=== PATIENT | male | born 1940 | race Caucasian/White ===

== ENCOUNTER 2018-05-12 11:09 | Inpatient (IN) ==
--- NOTE | 2018-05-12 11:22 | ED ---
HPI General Chief Complaint: Shortness of Breath/Dyspnea Stated Complaint: SOB since yesterday Time Seen by Provider: 05/12/18 11:15 Source: patient Mode of arrival: wheelchair Limitations: no limitations History of Present Illness Patient's primary physician is Dr. Savage. Cardiology this is Dr. Ibarra who follows him for atrial fibrillation previously on amiodarone currently not on any antiarrhythmic and only on [address] wolf the oncologist for prostate and bladder cancer. Dr. andrade for COPD. Also history of Parkinson's and anemia. Patient comes in complaining of a one day onset of shortness of breath relieved partially by nebulizers and tremendously improved with oxygen. Patient states that he has had a nonproductive sputum times 2 days as well. No evidence of any nausea vomiting abdominal pain back pain or fever. Related Data Allergies Allergy/AdvReac Type Severity Reaction Status Date / Time No Known Allergies Allergy Uncoded 02/01/16 16:54 Review of Systems ROS: all other systems reviewed are negative PMFSH History History Provided By: Patient Social History Social History Substance History: No History of Abuse Smoking Status: Former smoker How Often Do You Have a Drink Containing Alcohol: Never Recent Travel in [facility] within the Last 8 Weeks: No Recent Out of Country Travel within the Last 8 Weeks: No Exam Narrative Exam Narrative: GENERAL: elderly male in moderate resp distress. SKIN: Warm and dry. HEAD: Atraumatic. Normocephalic. EYES: Pupils equal and round. No scleral icterus. No injection or drainage. ENT: No nasal bleeding or discharge. Mucous membranes pink and moist. NECK: Trachea midline. No JVD. CARDIOVASCULAR: Regular rate and rhythm. no rubs or gallops RESPIRATORY: No accessory muscle use. Tachypneic. Bilateral rhonchi . Tidal volume diminished bilaterally. GASTROINTESTINAL: Abdomen soft, non-tender, nondistended. No rebound or guarding MUSCULOSKELETAL: Extremities without clubbing, cyanosis, or edema. No obvious deformities. NEUROLOGICAL: Awake and alert. No obvious cranial nerve deficits. Motor grossly within normal limits. Five out of 5 muscle strength in the arms and legs. Normal speech. PSYCHIATRIC: Appropriate mood and affect; insight and judgment normal. Course Initial Documented Vital Signs Temperature 98.3 F 05/12/18 11:15 Pulse Rate 72 05/12/18 11:15 Respiratory Rate 22 05/12/18 11:15 Blood Pressure 138/106 H 05/12/18 11:15 Pulse Oximetry 91 L 05/12/18 11:15 Last Documented Vital Signs Temperature 98.3 F 05/12/18 11:15 Pulse Rate 70 05/12/18 11:55 Respiratory Rate 16 05/12/18 11:55 Blood Pressure 141/59 H 05/12/18 11:48 Pulse Oximetry 96 05/12/18 11:48 Critical Care Time Critical Care Time: Yes Total Critical Care Time: 45 Attestation: Aggregate critical care time was [45] minutes. Time to perform other separately billable procedures was not included in the critical care time. My time did not include minutes spent treating any other patients simultaneously or on activities that did not directly contribute to the patient's treatment. The services I provided to this patient were to treat and/or prevent clinically significant deterioration I provided critical care services requiring my management, as noted below: Chart data review, documentation time, medication orders and management, vital sign assessments/reviewing monitor data, ordering and reviewing lab tests, ordering and interpreting/reviewing x-rays and diagnostic studies, care of the patient and discussion of the patient with the admitting physicians. Medical Decision Making MDM Narrative Medical decision making narrative: No leukocytosis, anemia 8.9/27, 85% neutrophilia, normal platelet count Coagulation profile within normal limits Electrolytes are within normal limits. BUN elevated at 39 creatinine 2.4 GFR of 26 Hyperglycemia random glucose of 2 9 Normal liver and pancreatic enzymes. Negative troponin, elevated beta natruretic peptide 786 consistent with possible CHF Chest x-ray read by radiologist as radiographic findings concerning for CHF with pulmonary edema and bilateral pleural effusions noted. Patient had already empirically been treated for COPD, with albuterol nebulizers , supplemental oxygen and Solu-Medrol IV x1... Patient also received aspirin and nitroglycerin paste. Based on beta natruretic peptide and chest x-ray findings will add Lasix IV x1 and admit the patient for hypoxemic respiratory failure secondary to pulmonary edema Medical Screen Exam Complete: Yes Emergency Medical Condition: Yes Lab Data Result diagrams: 05/12/18 11:40 05/12/18 11:40 Lab Results 05/12/18 05/12/18 05/12/18 Range/Units 11:40 11:40 11:40 CBC w Diff Auto diff final WBC 9.9 (4.0-11.0) th/mm3 RBC 2.74 L (4.50-5.90) mil/mm3 Hgb 8.9 L (13.0-17.0) gm/dL Hct 27.1 L (39.0-51.0) % MCV 98.8 (80.0-100.0) fL MCH 32.5 (27.0-34.0) pg MCHC 33.0 (32.0-36.0) % RDW 15.5 (11.6-17.2) % Plt Count 190 (150-450) th/mm3 MPV 9.3 (7.0-11.0) fL Neut % (Auto) 84.7 H (16.0-70.0) % Lymph % (Auto) 5.3 L (9.0-44.0) % [place] % (Auto) 5.0 (0.0-8.0) % Eos % (Auto) 0.3 (0.0-4.0) % Baso % (Auto) 4.7 H (0.0-2.0) % Neut # (Auto) 8.4 H (1.8-7.7) th/mm3 Lymph # (Auto) 0.5 L (1.0-4.8) th/mm3 [place] # (Auto) 0.5 (0.0-0.9) th/mm3 Eos # (Auto) 0.0 (0.0-0.4) th/mm3 Baso # (Auto) 0.5 H (0.0-0.2) th/mm3 WBC Differential . Differential Comment . PT 11.0 (9.8-11.6) sec INR 1.1 Ratio APTT 27.3 (23.4-31.7) sec Sodium 138 (136-145) meq/L Potassium 4.1 (3.5-5.1) meq/L Chloride 101 (98-107) meq/L Carbon Dioxide 28.4 (21.0-32.0) meq/L Anion Gap 9 (5-15) meq/L BUN 39 H (7-18) mg/dL Creatinine 2.40 H (0.60-1.30) mg/dL Estimated GFR 26 L (>89) mL/min Random Glucose 209 H (74-106) mg/dL Calcium 8.4 L (8.5-10.1) mg/dL Total Bilirubin 0.5 (0.2-1.0) mg/dL AST 26 (15-37) U/L ALT 22 (12-78) U/L Alkaline Phosphatase 85 (45-117) U/L Total Creatine Kinase 62 (39-308) U/L Troponin I Less than 0.02 L (0.02-0.05) ng/mL B-Natriuretic Peptide (0-100) pg/mL Total Protein 6.7 (6.4-8.2) g/dL Albumin 2.8 L (3.4-5.0) g/dL Lipase 70 L (73-393) U/L 05/12/ Range/Units 11:40 CBC w Diff WBC (4.0-11.0) th/mm3 RBC (4.50-5.90) mil/mm3 Hgb (13.0-17.0) gm/dL Hct (39.0-51.0) % MCV (80.0-100.0) fL MCH (27.0-34.0) pg MCHC (32.0-36.0) % RDW (11.6-17.2) % Plt Count (150-450) th/mm3 MPV (7.0-11.0) fL Neut % (Auto) (16.0-70.0) % Lymph % (Auto) (9.0-44.0) % [place] % (Auto) (0.0-8.0) % Eos % (Auto) (0.0-4.0) % Baso % (Auto) (0.0-2.0) % Neut # (Auto) (1.8-7.7) th/mm3 Lymph # (Auto) (1.0-4.8) th/mm3 [place] # (Auto) (0.0-0.9) th/mm3 Eos # (Auto) (0.0-0.4) th/mm3 Baso # (Auto) (0.0-0.2) th/mm3 WBC Differential Differential Comment PT (9.8-11.6) sec INR Ratio APTT (23.4-31.7) sec Sodium (136-145) meq/L Potassium (3.5-5.1) meq/L Chloride (98-107) meq/L Carbon Dioxide (21.0-32.0) meq/L Anion Gap (5-15) meq/L BUN (7-18) mg/dL Creatinine (0.60-1.30) mg/dL Estimated GFR (>89) mL/min Random Glucose (74-106) mg/dL Calcium (8.5-10.1) mg/dL Total Bilirubin (0.2-1.0) mg/dL AST (15-37) U/L ALT (12-78) U/L Alkaline Phosphatase (45-117) U/L Total Creatine Kinase (39-308) U/L Troponin I (0.02-0.05) ng/mL B-Natriuretic Peptide 796 H (0-100) pg/mL Total Protein (6.4-8.2) g/dL Albumin (3.4-5.0) g/dL Lipase (73-393) U/L Imaging Data Radiologist's impression: Chest X-Ray 05/12/18 11:15 CONCLUSION: Radiographic findings concerning for congestive heart failure with pulmonary edema and bilateral pleural effusions versus multifocal airspace consolidation secondary to pneumonia. ECG Data EKG Prior to Arrival: No Attestation: I personally reviewed and interpreted this ECG as follows: Prior ECG tracings: not available for review Interpretation: Normal sinus rhythm, 72 bpm, Diffuse minimal ST depressions Discharge Plan Discharge Disposition Patient Disposition: ED Admit(ED Internal Use Only) Discharge Condition Condition: Fair Discharge Details Diagnosis: Acute hypoxemic respiratory failure, Pulmonary edema Physicians Team ED Provider: Jerel Casanova Primary Care Provider: Mira Rizo Discharge Interventions Interventions: Vital Signs Last Done: 05/12/18 11:48 Status ED Status: With Doctor
[2018-05-12] MEDS ORDERED: MethylPREDNISolone Sod Succinate Inj 125 MG/2 ML Vial IV.PUSH ONE (11:30)
--- NOTE | 2018-05-12 11:48 | XR ---
EXAM DATE: 05/12/2018 11:45 AM EST AGE/SEX: 77 years / Male INDICATIONS: Short of breath, cough, chest pains CLINICAL DATA: This is the patient's initial encounter. Patient reports that signs and symptoms have been present for 2 days and indicates a pain score of 2/10. MEDICAL/SURGICAL HISTORY: Chronic obstructive pulmonary disease. Congestive heart failure. . C ardiac stents COMPARISON: POI, XR CHEST PA AND LAT, 02/11/2018. . FINDINGS: AP view of the chest demonstrate stable appearance of mild cardiomegaly with new bilateral airspace c onsolidations. Pulmonary vasculature is obscured by parenchymal airspace opacity. Bilateral diaphragm s are obscured. CONCLUSION: Radiographic findings concerning for congestive heart failure with pulmonary edema and bilateral pleu ral effusions versus multifocal airspace consolidation secondary to pneumonia. Electronically signed by: Mayra Cruz MD Board Certified Radiologist 05/12/2018 11:46 AM E
[2018-05-12 11:55] LABS: Baso # (Auto) 0.5 th/mm3 (0.0-0.2); Baso % (Auto) 4.7 % (0.0-2.0); Eos % (Auto) 0.3 % (0.0-4.0); Hematocrit 27.1 % (39.0-51.0); Hemoglobin 8.9 gm/dL (13.0-17.0); Lymph # (Auto) 0.5 th/mm3 (1.0-4.8); Lymph % (Auto) 5.3 % (9.0-44.0); Mean Corpuscular Hemoglobin 32.5 pg (27.0-34.0); Mean Corpuscular Volume 98.8 fL (80.0-100.0); Mean Platelet Volume 9.3 fL (7.0-11.0); Mono # (Auto) 0.5 th/mm3 (0.0-0.9); Neut # (Auto) 8.4 th/mm3 (1.8-7.7); Neut % (Auto) 84.7 % (16.0-70.0); Platelet Count 190 th/mm3 (150-450); Red Blood Count 2.74 mil/mm3 (4.50-5.90); Red Cell Distribution Width 15.5 % (11.6-17.2); White Blood Count 9.9 th/mm3 (4.0-11.0)
[2018-05-12 12:05] LABS: Chloride 101 meq/L (98-107); Potassium 4.1 meq/L (3.5-5.1); Sodium 138 meq/L (136-145)
[2018-05-12 12:09] LABS: Calcium 8.4 mg/dL (8.5-10.1)
[2018-05-12 12:10] LABS: Activated Partial Thrombo Time 27.3 sec (23.4-31.7); Albumin 2.8 g/dL (3.4-5.0); Anion Gap 9 meq/L (5-15); Blood Urea Nitrogen 39 mg/dL (7-18); Carbon Dioxide 28.4 meq/L (21.0-32.0); Glucose,Random 209 mg/dL (74-106); INR 1.1 Ratio; Lipase 70 U/L (73-393)
[2018-05-12 12:12] LABS: Alanine Aminotransferase 22 U/L (12-78); Aspartate Aminotransferase 26 U/L (15-37); Glomerular Filtration Rate 26 mL/min (>89)
[2018-05-12 12:14] LABS: Total Protein 6.7 g/dL (6.4-8.2)
[2018-05-12 12:15] LABS: Alkaline Phosphatase 85 U/L (45-117)
[2018-05-12 12:16] LABS: Creatine Kinase 62 U/L (39-308)
[2018-05-12 13:09] LABS: Bilirubin,Urine Negative (Negative); Clarity,Urine Clear (Clear); Color,Urine Yellow (Yellw/Straw); Glucose,Urine (UA) Negative (Negative); Leukocyte Esterase,Urine Negative (Negative); Nitrite,Urine Negative (Negative); Urobilinogen,Urine 0.2 mg/dL (Less than 2)
[2018-05-12 13:14] LABS: RBC,Urine 0-3 /hpf (0-3); Squamous Epithelial Cell,Urine 0-5 /hpf (0-5); WBC,Urine 0-5 /hpf (0-5)
[2018-05-12] MEDS ORDERED: Acetaminophen 325 MG Tablet PO PRN (13:18)
[2018-05-12] MEDS: Heparin - SQ 10,000 UNITS/ML Vial SQ SCH ×2 (14:03→21:50)
--- NOTE | 2018-05-12 14:11 | P.HP ---
History of Present Illness Primary Care Physician: Mira Rizo MD Chief Complaint: Shortness of breath History of Present Illness: This is a 77-year-old male patient with a known medical history of COPD, atrial fibrillation, prostate and bladder cancer who presented to the ED with worsening shortness of breath x 1 day. Patient states that yesterday morning he noticed worsening shortness of breath especially with activity. He denies any recent coughing. Shortness of breath was partially relieved with his nebulizers although it does seem to worsen over the course of the day. Patient states that his daily weights were also creeping up as well. He states that last week he saw his jigger operator, Dr. Ibarra, who at that time discontinued his amiodarone secondary to some reports of scarring on his x-ray seen by his interactive media designer. He does have a history of atrial fibrillation, on a baby aspirin. His anticoagulation was stopped in 2016 secondary to a bleeding polyp. Patient also sees a smash piecer for chronic kidney disease, Dr. Haynes, last seen a few months ago and has documented kidney disease Patient does state that he had an upper respiratory infection roughly 2 months ago was placed on antibiotics and steroids, denies any recent antibiotics or steroids. Patient has a history of COPD, sees Dr. Hernandez, pulmonary. Denies any recent fevers, chills, headache, abdominal pain, nausea, vomiting, diarrhea or dysuria. Denies recent echocardiogram. Patient is found to be in CHF exacerbation unknown type. BNP elevated. Chest x-ray significant for pulmonary edema as well as bilateral pleural effusions. - Diagnosis (1) Acute hypoxemic respiratory failure (2) Pulmonary edema Inpatient Certification: I certify that the inpatient services were ordered in accordance with Medicare regulations governing the order. This includes certification that hospital inpatient services are reasonable and necessary and in the case of services not specified as inpatient-only under 42 CFR 419.22(n), that they are appropriately provided as inpatient services in accordance to with the 2-midnight benchmark under 43 CFR 412.3(e) Estimated Total Length of Stay (Days): 2 Plans for Post Hospital Care: Not yet determined Review of Systems All other systems reviewed negative except as stated [facility] - History History Provided By: Patient - Medical History Medical History: Medical History (Last Reviewed 05/12/18 @ 15:39 by Folra Ojeda) Bladder cancer CHF (congestive heart failure) COPD (chronic obstructive pulmonary disease) Heart attack Kidney disease Prostate cancer - Surgical History Surgical History: Surgical History (Last Reviewed 05/12/18 @ 15:39 by Flora Ojeda) History of coronary artery stent placement - Family History Family History: Family History (Last Updated 05/12/18 @ 15:39 by Flora Ojeda) Other Family history non-contributory - Social History I have reviewed the patient's Social History: Yes - Tobacco History Smoking Status: Former smoker - Alcohol History How Often Do You Have a Drink Containing Alcohol: Never - Substance Use History Substance History: No History of Abuse - Travel History Recent Travel in the [place] Within the Last 8 Weeks: No Recent Travel Out of the Country Within the Last 8 Weeks: No - Immunization History Tetanus Immunization: >5 Years Medications and Allergies Active Medications: Active Medications Acetaminophen (Tylenol) 650 mg PO Q4H PRN PRN Reason: Temp > 100.4, pain 1-2 Heparin Sodium (Porcine) (Heparin Inj) 5,000 units SQ Q8H [facility] Last Admin: 05/12/18 14:03 Dose: 5,000 units Senna/Docusate Sodium (Carmen-Colace) 1 tab PO BID ROLAND Sodium Chloride (Ns Flush) 2 ml IV.FLUSH BID ROLAND Sodium Chloride (Ns Flush) 2 ml IV.FLUSH PRN PRN PRN Reason: FLUSH AFTER USING IV ACCESS Allergies Allergy/AdvReac Type Severity Reaction Status Date / Time No Known Allergies Allergy Abdominal Uncoded 05/12/18 13:09 Pain Home Medications Medication Instructions Recorded Confirmed Type aspirin [Aspir-81] 81 mg PO DAILY 05/12/18 05/12/18 History atorvastatin 20 mg PO QPM 05/12/18 05/12/18 History bumetanide 1 mg PO DAILY PRN 05/12/18 05/12/18 History epoetin javi [Procrit] DIRECTED 05/12/18 History ferrous gluconate 324 mg PO DAILY 05/12/18 05/12/18 History hydralazine 100 mg PO BID 05/12/18 05/12/18 History insulin glargine [Lantus Solostar 20 unit SUBCUT DAILY 05/12/18 05/12/18 History U-100 Insulin] isosorbide mononitrate 60 mg PO QAM 05/12/18 05/12/18 History levothyroxine 50 mcg PO DAILY 05/12/18 05/12/18 History lorazepam 1 tab PO DIRECTED PRN 05/12/18 05/12/18 History magnesium 250 mg PO DAILY 05/12/18 05/12/18 History metolazone 10 mg PO DAILY PRN 05/12/18 05/12/18 History metoprolol succinate 50 mg PO DAILY 05/12/18 05/12/18 History gk-erx-tvoop acid-lutein [Centrum 1 tab PO DAILY 05/12/18 05/12/18 History Silver] omeprazole 20 mg PO DAILY 05/12/18 05/12/18 History potassium chloride [Klor-Con 10] 1 tab PO PRN 05/12/18 History sertraline 50 mg PO DAILY 05/12/18 05/12/18 History terazosin 5 mg PO BID 05/12/18 05/12/18 History tiotropium bromide [Spiriva with 1 cap INHALATION DAILY 05/12/18 05/12/18 History HandiHaler] Exam Vital signs: Vital Signs 05/12/18 11:15 05/12/18 11:45 05/12/18 11:48 Temperature 98.3 F Pulse Rate 74 71 71 Respiratory Rate 22 20 20 Blood Pressure 138/106 H 141/59 H 141/59 H Pulse Oximetry 96 96 96 05/12/18 11:49 05/12/18 11:55 05/12/18 12:51 Temperature Pulse Rate 69 70 75 Respiratory Rate 20 16 20 Blood Pressure 123/69 Pulse Oximetry 97 Intake & Output 05/11/18 05/12/18 05/12/18 18:59 06:59 18:59 Output Total 500 / 500 Balance -500 / -500 Weight 95 kg Output: Urine 500 / 500 Narrative: GENERAL: Well-developed, well-nourished patient on supplemental O2. In no apparent distress. SKIN: Warm and dry. No rash. HEAD: Normocephalic. Atraumatic. EYES: Pupils equal and round. No scleral icterus. No injection or drainage. ENT: No nasal bleeding or discharge. Mucous membranes pink and moist. NECK: Supple. Trachea midline. CARDIOVASCULAR: Regular rate and rhythm. S1, S2 noted. RESPIRATORY: No accessory muscle use. Diminished lung sounds secondary to body habitus. Breath sounds equal bilaterally. GASTROINTESTINAL: Abdomen soft, non-tender, nondistended. Round. Normoactive bowel sounds x4. MUSCULOSKELETAL: No obvious deformities. Extremities without clubbing, cyanosis , or edema. NEUROLOGICAL: Awake and alert. No obvious cranial nerve deficits. Motor grossly within normal limits. 5/5 muscle strength in bilateral upper and lower extremities. Normal speech. PSYCHIATRIC: Appropriate mood and affect; insight and judgment normal. Results - Labs CBC & Chem 7: 05/12/18 11:40 05/12/18 11:40 Labs: Laboratory Results - last 24 hr 05/12/18 05/12/18 05/12/18 11:40 11:40 11:40 CBC w Diff Auto diff final WBC 9.9 RBC 2.74 L Hgb 8.9 L Hct 27.1 L MCV 98.8 MCH 32.5 MCHC 33.0 RDW 15.5 Plt Count 190 MPV 9.3 Neut % (Auto) 84.7 H Lymph % (Auto) 5.3 L [place] % (Auto) 5.0 Eos % (Auto) 0.3 Baso % (Auto) 4.7 H Neut # (Auto) 8.4 H Lymph # (Auto) 0.5 L [place] # (Auto) 0.5 Eos # (Auto) 0.0 Baso # (Auto) 0.5 H WBC Differential . Differential Comment . PT 11.0 INR 1.1 APTT 27.3 Sodium 138 Potassium 4.1 Chloride 101 Carbon Dioxide 28.4 Anion Gap 9 BUN 39 H Creatinine 2.40 H Estimated GFR 26 L Random Glucose 209 H Calcium 8.4 L Total Bilirubin 0.5 AST 26 ALT 22 Alkaline Phosphatase 85 Total Creatine Kinase 62 Troponin I Less than 0.02 L B-Natriuretic Peptide Total Protein 6.7 Albumin 2.8 L Lipase 70 L Ur Collection Type Urine Color Urine Clarity Urine pH Ur Specific [place] Urine Protein Urine Glucose (UA) Urine Ketones Urine Occult Blood Urine Nitrate Urine Bilirubin Urine Urobilinogen Ur Leukocyte Esterase Urine RBC Urine WBC Ur Squamous Epith Cells Micro UA Comment Ur Microscopic Review Urine Culture Comments 05/12/18 05/12/18 11:40 12:55 CBC w Diff WBC RBC Hgb Hct MCV MCH MCHC RDW Plt Count MPV Neut % (Auto) Lymph % (Auto) [place] % (Auto) Eos % (Auto) Baso % (Auto) Neut # (Auto) Lymph # (Auto) [place] # (Auto) Eos # (Auto) Baso # (Auto) WBC Differential Differential Comment PT INR APTT Sodium Potassium Chloride Carbon Dioxide Anion Gap BUN Creatinine Estimated GFR Random Glucose Calcium Total Bilirubin AST ALT Alkaline Phosphatase Total Creatine Kinase Troponin I B-Natriuretic Peptide 796 H Total Protein Albumin Lipase Ur Collection Type Clean catch Urine Color Yellow Urine Clarity Clear Urine pH 5.0 Ur Specific [place] 1.010 Urine Protein Negative Urine Glucose (UA) Negative Urine Ketones Negative Urine Occult Blood Negative Urine Nitrate Negative Urine Bilirubin Negative Urine Urobilinogen 0.2 Ur Leukocyte Esterase Negative Urine RBC 0-3 Urine WBC 0-5 Ur Squamous Epith Cells 0-5 Micro UA Comment Culture not ind Ur Microscopic Review Microscopic reviewed Urine Culture Comments Culture not ind - Imaging Impressions Chest X-Ray 05/12/18 11:15 CONCLUSION: Radiographic findings concerning for congestive heart failure with pulmonary edema and bilateral pleural effusions versus multifocal airspace consolidation secondary to pneumonia. Caprini VTE Risk Assessment Caprini VTE Risk Assessment: Moderate/High Risk (score >= 2) Caprini Risk Assessment Model: Point Value = 1 Point Value = 2 Point Value = 3 Point Value = 5 Age 41-60 Minor surgery BMI > 25 kg/m2 Swollen legs Varicose veins or History of unexplained or recurrent spontaneous Oral contraceptives or hormone replacement Sepsis (< 1 month) Serious lung disease, including pneumonia (< 1 month) Abnormal pulmonary function Acute myocardial infarction Congestive heart failure (< 1 month) History of inflammatory bowel disease Medical patient at bed rest Age 61-74 Arthroscopic surgery Major open surgery (> 45 min) Laparoscopic surgery (> 45 min) Malignancy Confined to bed (> 72 hours) Immobilizing plaster cast Central venous access Age >= 75 History of VTE Family history of VTE Factor V Leiden Prothrombin [id number] Lupus anticoagulant Anticardiolipin antibodies Elevated serum homocysteine Heparin-induced thrombocytopenia Other congenital or acquired thrombophilia Stroke (< 1 month) Elective arthroplasty Hip, pelvis, or leg fracture Acute spinal cord injury (< 1 month) Prophylaxis Regimen: Total Risk Factor Score Risk Level Prophylaxis Regimen 0-1 Low Early ambulation 2 Moderate Order ONE of the following: *Sequential Compression Device (SCD) *Heparin 5000 units SQ BID 3-4 Higher Order ONE of the following medications: *Heparin 5000 units SQ TID *Enoxaparin/Lovenox 40 mg SQ daily (WT < 150 kg, CrCl > 30 mL/min) *Enoxaparin/Lovenox 30 mg SQ daily (WT < 150 kg, CrCl > 10-29 mL/min) *Enoxaparin/Lovenox 30 mg SQ BID (WT < 150 kg, CrCl > 30 mL/min) AND/OR *Sequential Compression Device (SCD) 5 or more Highest Order ONE of the following medications: *Heparin 5000 units SQ TID (Preferred with Epidurals) *Enoxaparin/Lovenox 40 mg SQ daily (WT < 150 kg, CrCl > 30 mL/min) *Enoxaparin/Lovenox 30 mg SQ daily (WT < 150 kg, CrCl > 10-29 mL/min) *Enoxaparin/Lovenox 30 mg SQ BID (WT < 150 kg, CrCl > 30 mL/min) AND *Sequential Compression Device (SCD) Assessment and Plan - Assessment (1) Acute hypoxemic respiratory failure Code(s): J96.01 - Acute respiratory failure with hypoxia Status: Acute (2) Pulmonary edema Code(s): J81.1 - Chronic pulmonary edema Status: Acute - Plan This is a 77-year-old male patient presented to the ED with: CHF, unspecified type, in exacerbation Acute respiratory failure suspect secondary to above -BNP 796. Chest x-ray showing possible pulmonary edema with pleural effusions. Order for CT of the chest. Follow. -Order for Lasix 40 mg IV daily. -Monitor intake and output closely. -Check echocardiogram. Follow. -EKG reviewed, controlled heart rate, no ST changes to indicate ischemia. Troponin negative. COPD with possible exacerbation -Chest x-ray findings as above. Follow chest CT. -Patient was given methylprednisone IV 125 mg x1 in ED. -Supplemental O2 as needed to keep oxygen saturations greater than 92%. -DuoNeb scheduled and available as needed for shortness of breath/wheezing. History of atrial fibrillation -Patient follows with Dr. Ibarra, cardiology. No anticoagulation. On aspirin at home. -Continue on cardiac telemetry, monitor for any arrhythmias. -EKG reviewed, sinus rhythm with controlled heart rate, no ST changes to indicate any ischemia. Anemia of chronic disease History of iron deficiency anemia. Normocytic normochromic anemia -Hemoglobin 8.9/hematocrit 27.1. -Will continue to monitor CBC. -No signs of active bleeding. -Patient takes iron at home as well as Epogen. Acute? kidney injury on chronic -Creatinine 2.4/GFR 26/BUN 39. -Unknown if this is chronic for patient. -Will likely improve with use of diuretics. Continue to follow. -Avoid nephrotoxins. -Recheck BMP in a.m. Follow. Type 2 diabetes mellitus, chronic -Accu-Chek before meals at bedtime, sliding scale, cover as needed. -Patient takes insulin at home. -Monitor blood sugar trends. History of prostate and bladder cancer -Patient sees Dr. Velez. -Currently stable. DVT prophylaxis: SCDs. Heparin. (2) Pulmonary edema Qualifiers: Chronicity: acute Qualified Code(s): J81.0 - Acute pulmonary edema
[2018-05-12] MEDS ORDERED: Dextrose 50% in Water 50 ML Vial IV.PUSH PRN (14:54)
--- NOTE | 2018-05-12 16:13 | CT ---
EXAM DATE: 05/12/2018 4:05 PM EST AGE/SEX: 77 years / Male INDICATIONS: Short of breath since yesterday. CLINICAL DATA: This is the patient's initial encounter. Patient reports that signs and symptoms have been present for 2 days and indicates a pain score of 0/10. MEDICAL/SURGICAL HISTORY: None. None. RADIATION DOSE: 16.52 CTDI (mGy) COMPARISON: No prior exams available for comparison. TECHNIQUE: Multiple contiguous axial images were obtained through the chest without contrast. Image s were obtained in suspended respiration using multiple row detector helical technique. Using automa kristel exposure control and adjustment of the mA and/or kV according to patient size, radiation dose was kept as low as reasonably achievable to obtain optimal diagnostic quality images. DICOM format imag e data is available electronically for review and comparison. FINDINGS: Moderate bilateral pleural effusions are present with consolidation and/or compressive collapse bilat eral lower lobes. There is evidence of prominence bilaterally may represent pulmonary edema. Small pe ricardial effusion is seen. There are lymph nodes within the mediastinum slightly prominent the large st one measures 2.4 cm in size right paratracheal location and this lymph node measured 1.4 cm on the prior study from 2014. There are prominent lymph nodes in the AP window and bilateral hilar as well as subcarinal area. CONCLUSION: 1. Volume overload and pulmonary edema. 2. Bilateral pleural effusions. Bibasilar consolidation and/or compressive collapse. 3. Prominent lymph nodes not present on the prior study from 2014 nonspecific in regards to malignan cy could be reactive, however neoplastic etiologies should also be entertained and clinical correlati on is recommended. Electronically signed by: Gonzalo Berrios MD Board Certified Radiologist 05/12/2018 4:12 PM EST
[2018-05-12] MEDS: Insulin NovoLOG Aspart Correctional Sugar Inj SQ SCH ×2 (17:56→20:59)
[2018-05-12] MEDS: MethylPREDNISolone Sod Succinate Inj 40 MG/ML Vial IV.PUSH SCH ×2 (17:56→21:49)
[2018-05-12] MEDS: Isosorbide Mononitrate 60 MG ER 24HR Tablet (Imdur) PO SCH (17:56)
[2018-05-12] MEDS: Senna/Docusate Sodium 8.6/50 MG Tablet PO SCH (20:59)
[2018-05-12] MEDS: hydrALAZINE 50 MG Tablet PO SCH (21:50)
[2018-05-13] MEDS: MethylPREDNISolone Sod Succinate Inj 40 MG/ML Vial IV.PUSH SCH ×3 (04:09→16:47)
[2018-05-13 04:36] LABS: Baso % (Auto) 0.1 % (0.0-2.0); Hematocrit 25.1 % (39.0-51.0); Hemoglobin 8.3 gm/dL (13.0-17.0); Lymph # (Auto) 0.3 th/mm3 (1.0-4.8); Lymph % (Auto) 2.3 % (9.0-44.0); Mean Corpuscular HGB Conc 33.2 % (32.0-36.0); Mean Corpuscular Hemoglobin 32.8 pg (27.0-34.0); Mean Corpuscular Volume 98.6 fL (80.0-100.0); Mono # (Auto) 0.1 th/mm3 (0.0-0.9); Mono % (Auto) 0.7 % (0.0-8.0); Neut # (Auto) 11.8 th/mm3 (1.8-7.7); Neut % (Auto) 96.9 % (16.0-70.0); Platelet Count 202 th/mm3 (150-450); Red Blood Count 2.54 mil/mm3 (4.50-5.90); Red Cell Distribution Width 15.1 % (11.6-17.2); White Blood Count 12.1 th/mm3 (4.0-11.0)
[2018-05-13 04:42] LABS: Chloride 98 meq/L (98-107); Potassium 3.6 meq/L (3.5-5.1); Sodium 137 meq/L (136-145)
[2018-05-13 04:45] LABS: Albumin 2.6 g/dL (3.4-5.0); Anion Gap 9 meq/L (5-15); Calcium 8.2 mg/dL (8.5-10.1); Carbon Dioxide 29.9 meq/L (21.0-32.0); Glucose,Random 277 mg/dL (74-106)
[2018-05-13 04:46] LABS: Blood Urea Nitrogen 47 mg/dL (7-18)
[2018-05-13 04:48] LABS: Alanine Aminotransferase 20 U/L (12-78); Aspartate Aminotransferase 18 U/L (15-37)
[2018-05-13 04:49] LABS: Glomerular Filtration Rate 24 mL/min (>89)
[2018-05-13 04:50] LABS: Total Protein 6.3 g/dL (6.4-8.2)
[2018-05-13 04:51] LABS: Alkaline Phosphatase 77 U/L (45-117)
[2018-05-13] MEDS: Heparin - SQ 10,000 UNITS/ML Vial SQ SCH ×3 (05:51→21:22)
[2018-05-13] MEDS: Levothyroxine 50 MCG Tablet PO SCH (05:52)
[2018-05-13] MEDS: Isosorbide Mononitrate 60 MG ER 24HR Tablet (Imdur) PO SCH (06:26)
[2018-05-13] MEDS: hydrALAZINE 50 MG Tablet PO SCH ×2 (08:30→21:21)
[2018-05-13] MEDS: Ferrous Sulfate 325 MG Tablet PO SCH (08:30)
[2018-05-13] MEDS: Senna/Docusate Sodium 8.6/50 MG Tablet PO SCH ×2 (08:31→21:21)
[2018-05-13] MEDS: Sertraline 50 MG Tablet PO SCH (08:31)
[2018-05-13] MEDS: Magnesium Oxide 400 MG Tablet PO SCH (08:31)
[2018-05-13] MEDS: Insulin NovoLOG Aspart Correctional Sugar Inj SQ SCH ×4 (08:37→21:20)
[2018-05-13] MEDS: Tiotropium Bromide 18 MCG/ACT Inhaler INH SCH (08:38)
[2018-05-13] MEDS: Insulin Detemir Inj 1,000 UNIT/10 ML Vial SQ SCH (08:38)
[2018-05-13] MEDS ORDERED: levoFLOXacin 750 MG Tablet PO SCH ×2 (11:30→12:00)
--- NOTE | 2018-05-13 11:34 | P.PNIM ---
Subjective Interval history: Follow-up CHF exacerbation and acute respiratory failure. Patient seen and examined, sitting in chair comfortably on 1 L nasal cannula. States he slept well. Is diuresing well. Awaiting pulmonary input. Check ultrasound pleural effusions. Vital signs stable. Afebrile. Physical Exam Vital signs: Vital Signs 05/12/18 11:45 05/12/18 11:48 05/12/18 11:49 Temperature Pulse Rate 71 71 69 Respiratory Rate 20 20 20 Blood Pressure 141/59 H 141/59 H Pulse Oximetry 96 96 05/12/18 11:55 05/12/18 12:51 05/12/18 15:00 Temperature Pulse Rate 70 75 110 H Respiratory Rate 16 20 Blood Pressure 123/69 Pulse Oximetry 97 05/12/18 15:05 05/12/18 16:00 05/12/18 16:12 Temperature 98.1 F Pulse Rate 69 Respiratory Rate 20 24 Blood Pressure 138/61 171/64 H 171/64 H Pulse Oximetry 94 L 05/12/18 16:22 05/12/18 17:00 05/12/18 18:00 Temperature Pulse Rate 68 68 70 Respiratory Rate 20 21 21 Blood Pressure 181/75 H 159/64 H Pulse Oximetry 95 95 94 L 05/12/18 19:00 05/12/18 20:00 05/12/18 20:40 Temperature 98.1 F Pulse Rate 70 72 70 Respiratory Rate 26 H 20 18 Blood Pressure 160/59 H 192/63 H Pulse Oximetry 95 95 95 05/12/18 21:00 05/12/18 22:00 05/12/18 22:06 Temperature Pulse Rate 72 80 80 Respiratory Rate 22 20 24 Blood Pressure 172/63 H 143/61 H Pulse Oximetry 96 94 L 95 05/12/18 22:08 05/12/18 23:00 05/12/18 23:10 Temperature Pulse Rate 79 76 78 Respiratory Rate 28 H 26 H 22 Blood Pressure 143/61 H 165/65 H Pulse Oximetry 93 L 93 L 96 05/13/18 00:00 05/13/18 01:00 05/13/18 02:00 Temperature 99.2 F Pulse Rate 72 74 72 Respiratory Rate 25 H 24 19 Blood Pressure 154/56 H 158/85 H 157/55 H Pulse Oximetry 94 L 95 95 05/13/18 03:00 05/13/18 04:00 05/13/18 05:00 Temperature 98.3 F Pulse Rate 68 70 68 Respiratory Rate 23 31 H 23 Blood Pressure 148/53 H 168/61 H 178/81 H Pulse Oximetry 95 94 L 94 L 05/13/18 06:00 05/13/18 07:00 05/13/18 07:27 Temperature Pulse Rate 68 66 65 Respiratory Rate 25 H 26 H 16 Blood Pressure 161/55 H 179/67 H Pulse Oximetry 96 95 95 05/13/18 08:00 05/13/18 08:31 05/13/18 09:00 Temperature 98.3 F Pulse Rate 76 78 84 Respiratory Rate 22 26 H 30 H Blood Pressure 192/72 H 183/77 H 182/96 H Pulse Oximetry 91 L 92 L 05/13/18 10:00 Temperature Pulse Rate 74 Respiratory Rate 15 Blood Pressure 153/59 H Pulse Oximetry 94 L Intake & Output 05/12/18 05/13/18 05/13/18 18:59 06:59 18:59 Intake Total 0 / 0 240 / 240 Output Total 500 / 500 Balance -500 / -500 0 / 0 240 / 240 Weight 95 kg 96.6 kg Intake: Oral 0 / 0 240 / 240 Output: Urine 500 / 500 Other: # Urine Diapers 1 Narrative: GENERAL: Well-developed, well-nourished patient on supplemental O2. In no apparent distress. SKIN: Warm and dry. No rash. HEAD: Normocephalic. Atraumatic. EYES: Pupils equal and round. No scleral icterus. No injection or drainage. ENT: No nasal bleeding or discharge. Mucous membranes pink and moist. NECK: Supple. Trachea midline. CARDIOVASCULAR: Regular rate and rhythm. S1, S2 noted. RESPIRATORY: No accessory muscle use. Posterior lobes with crackles in bases. Breath sounds equal bilaterally. GASTROINTESTINAL: Abdomen soft, non-tender, nondistended. Round. Normoactive bowel sounds x4. MUSCULOSKELETAL: No obvious deformities. Extremities without clubbing, cyanosis. Bilateral lower extremity edema 1+. NEUROLOGICAL: Awake and alert. No obvious cranial nerve deficits. Motor grossly within normal limits. 5/5 muscle strength in bilateral upper and lower extremities. Normal speech. PSYCHIATRIC: Appropriate mood and affect; insight and judgment normal. Results - Labs CBC & Chem 7: 05/13/18 03:57 05/13/18 03:57 Laboratory Results - last 24 hr 05/12/18 05/12/18 05/12/18 11:40 11:40 11:40 CBC w Diff Auto diff final WBC 9.9 RBC 2.74 L Hgb 8.9 L Hct 27.1 L MCV 98.8 MCH 32.5 MCHC 33.0 RDW 15.5 Plt Count 190 MPV 9.3 Neut % (Auto) 84.7 H Lymph % (Auto) 5.3 L [place] % (Auto) 5.0 Eos % (Auto) 0.3 Baso % (Auto) 4.7 H Neut # (Auto) 8.4 H Lymph # (Auto) 0.5 L [place] # (Auto) 0.5 Eos # (Auto) 0.0 Baso # (Auto) 0.5 H WBC Differential . Differential Comment . PT 11.0 INR 1.1 APTT 27.3 Sodium 138 Potassium 4.1 Chloride 101 Carbon Dioxide 28.4 Anion Gap 9 BUN 39 H Creatinine 2.40 H Estimated GFR 26 L POC Glucose Random Glucose 209 H Calcium 8.4 L Total Bilirubin 0.5 AST 26 ALT 22 Alkaline Phosphatase 85 Total Creatine Kinase 62 Troponin I Less than 0.02 L B-Natriuretic Peptide Total Protein 6.7 Albumin 2.8 L Lipase 70 L Ur Collection Type Urine Color Urine Clarity Urine pH Ur Specific [place] Urine Protein Urine Glucose (UA) Urine Ketones Urine Occult Blood Urine Nitrate Urine Bilirubin Urine Urobilinogen Ur Leukocyte Esterase Urine RBC Urine WBC Ur Squamous Epith Cells Micro UA Comment Ur Microscopic Review Urine Culture Comments 05/12/18 05/12/18 05/12/18 11:40 12:55 16:41 CBC w Diff WBC RBC Hgb Hct MCV MCH MCHC RDW Plt Count MPV Neut % (Auto) Lymph % (Auto) [place] % (Auto) Eos % (Auto) Baso % (Auto) Neut # (Auto) Lymph # (Auto) [place] # (Auto) Eos # (Auto) Baso # (Auto) WBC Differential Differential Comment PT INR APTT Sodium Potassium Chloride Carbon Dioxide Anion Gap BUN Creatinine Estimated GFR POC Glucose Random Glucose Calcium Total Bilirubin AST ALT Alkaline Phosphatase Total Creatine Kinase Troponin I Less than 0.02 L B-Natriuretic Peptide 796 H Total Protein Albumin Lipase Ur Collection Type Clean catch Urine Color Yellow Urine Clarity Clear Urine pH 5.0 Ur Specific [place] 1.010 Urine Protein Negative Urine Glucose (UA) Negative Urine Ketones Negative Urine Occult Blood Negative Urine Nitrate Negative Urine Bilirubin Negative Urine Urobilinogen 0.2 Ur Leukocyte Esterase Negative Urine RBC 0-3 Urine WBC 0-5 Ur Squamous Epith Cells 0-5 Micro UA Comment Culture not ind Ur Microscopic Review Microscopic reviewed Urine Culture Comments Culture not ind 05/12/18 05/12/18 05/12/18 17:01 20:54 22:08 CBC w Diff WBC RBC Hgb Hct MCV MCH MCHC RDW Plt Count MPV Neut % (Auto) Lymph % (Auto) [place] % (Auto) Eos % (Auto) Baso % (Auto) Neut # (Auto) Lymph # (Auto) [place] # (Auto) Eos # (Auto) Baso # (Auto) WBC Differential Differential Comment PT INR APTT Sodium Potassium Chloride Carbon Dioxide Anion Gap BUN Creatinine Estimated GFR POC Glucose 317 H 348 H Random Glucose Calcium Total Bilirubin AST ALT Alkaline Phosphatase Total Creatine Kinase Troponin I Less than 0.02 L B-Natriuretic Peptide Total Protein Albumin Lipase Ur Collection Type Urine Color Urine Clarity Urine pH Ur Specific [place] Urine Protein Urine Glucose (UA) Urine Ketones Urine Occult Blood Urine Nitrate Urine Bilirubin Urine Urobilinogen Ur Leukocyte Esterase Urine RBC Urine WBC Ur Squamous Epith Cells Micro UA Comment Ur Microscopic Review Urine Culture Comments 05/13/18 05/13/18 05/13/18 03:57 03:57 08:19 CBC w Diff Auto diff final WBC 12.1 H RBC 2.54 L Hgb 8.3 L Hct 25.1 L MCV 98.6 MCH 32.8 MCHC 33.2 RDW 15.1 Plt Count 202 MPV 10.0 Neut % (Auto) 96.9 H Lymph % (Auto) 2.3 L [place] % (Auto) 0.7 Eos % (Auto) 0.0 Baso % (Auto) 0.1 Neut # (Auto) 11.8 H Lymph # (Auto) 0.3 L [place] # (Auto) 0.1 Eos # (Auto) 0.0 Baso # (Auto) 0.0 WBC Differential . Differential Comment . PT INR APTT Sodium 137 Potassium 3.6 Chloride 98 Carbon Dioxide 29.9 Anion Gap 9 BUN 47 H Creatinine 2.60 H Estimated GFR 24 L POC Glucose 324 H Random Glucose 277 H Calcium 8.2 L Total Bilirubin 0.4 AST 18 ALT 20 Alkaline Phosphatase 77 Total Creatine Kinase Troponin I B-Natriuretic Peptide Total Protein 6.3 L Albumin 2.6 L Lipase Ur Collection Type Urine Color Urine Clarity Urine pH Ur Specific [place] Urine Protein Urine Glucose (UA) Urine Ketones Urine Occult Blood Urine Nitrate Urine Bilirubin Urine Urobilinogen Ur Leukocyte Esterase Urine RBC Urine WBC Ur Squamous Epith Cells Micro UA Comment Ur Microscopic Review Urine Culture Comments - Imaging Impressions Chest CT 05/12/18 00:00 CONCLUSION: 1. Volume overload and pulmonary edema. 2. Bilateral pleural effusions. Bibasilar consolidation and/or compressive collapse. 3. Prominent lymph nodes not present on the prior study from 2014 nonspecific in regards to malignancy could be reactive, however neoplastic etiologies should also be entertained and clinical correlation is recommended. Chest X-Ray 05/12/18 11:15 CONCLUSION: Radiographic findings concerning for congestive heart failure with pulmonary edema and bilateral pleural effusions versus multifocal airspace consolidation secondary to pneumonia. Assessment and Plan - Assessment (1) Acute hypoxemic respiratory failure Code(s): J96.01 - Acute respiratory failure with hypoxia Status: Acute (2) Pulmonary edema Code(s): J81.1 - Chronic pulmonary edema Status: Acute - Plan This is a 77-year-old male patient presented to the ED with: CHF, unspecified type, in exacerbation Acute respiratory failure suspect secondary to above -BNP 796. Chest x-ray showing possible pulmonary edema with pleural effusions. Chest CT showing bilateral pleural effusions and pulm edema and overload. Also prominent lymph nodes presents. Pulmonary has been consulted, await input and recommendations. Added US bilateral lungs. -Order for Lasix 40 mg IV daily. Continue. Diuresing well. -Monitor intake and output closely. -Check echocardiogram. Follow. -EKG reviewed, controlled heart rate, no ST changes to indicate ischemia. Troponin negative. COPD with possible exacerbation -Chest x-ray and chest CT findings as above. -Patient was given methylprednisone IV 125 mg x1 in ED. Continue steroids scheduled. Added Levaquin. -Supplemental O2 as needed to keep oxygen saturations greater than 92%. -DuoNeb scheduled and available as needed for shortness of breath/wheezing. -Await pulmonary input. History of atrial fibrillation -Patient follows with Dr. Ibarra, cardiology. Not on anticoagulation at home. On aspirin at home. -Continue on cardiac telemetry, monitor for any arrhythmias. -EKG reviewed, sinus rhythm with controlled heart rate, no ST changes to indicate any ischemia. Anemia of chronic disease History of iron deficiency anemia. Normocytic normochromic anemia -Hemoglobin 8.9/hematocrit 27.1. -Will continue to monitor CBC. -No signs of active bleeding. -Patient takes iron at home as well as Epogen. Chronic kidney disease stage IV -Creatinine 2.4/GFR 26/BUN 39. Patient and state that patient's baseline GFR is around 26. -Continue to follow. -Avoid nephrotoxins. -Follow BMP in a.m. Type 2 diabetes mellitus, chronic -Accu-Chek before meals at bedtime, sliding scale, cover as needed. -Patient takes insulin at home. -Monitor blood sugar trends. Steroids may cause hyperglycemia. -Continue Levemir at night. Adjust as needed. History of prostate and bladder cancer -Patient sees Dr. Velez. -Currently stable. DVT prophylaxis: SCDs. Heparin. Discharge Planning: Awaiting clinical improvement. Pulm consulted. (2) Pulmonary edema Qualifiers: Chronicity: acute Qualified Code(s): J81.0 - Acute pulmonary edema
--- NOTE | 2018-05-13 12:17 | ECG ---
Date Performed: 05/12/2018 Time Performed: 11:13:51 PTAGE: 77 years EKG: Sinus rhythm NONSPECIFIC ST & T-WAVE ABNORMALITY BORDERLINE ECG Since the PREVIOUS TRACING , no significant change noted PREVIOUS TRACIN07/27/2015 07.15 DOCTOR: Sohan Barahona Interpretating Date/Time 05/13/2018 12:16:06
--- NOTE | 2018-05-13 12:30 | US ---
EXAM DATE: 05/13/2018 12:08 PM EST AGE/SEX: 77 years / Male INDICATIONS: Pleural effusion with shortness of breath. CLINICAL DATA: This is the patient's initial encounter. Patient reports that signs and symptoms have been present for 2 days and indicates a pain score of 0/10. MEDICAL/SURGICAL HISTORY: Carcinoma, bladder. Chronic obstructive pulmonary disease. Congesti ve heart failure. Renal disease. Parkinson's disease. Prostate cancer. Myocardial infarction. Co ronary artery stent. COMPARISON: [facility], CT CHEST W/O CONTRAST, 05/12/2018. . MEASUREMENTS: Skin To Parietal Pleura:__2.5 cm Skin To Max Safe Depth:__N/A cm Estimated Fluid Volume:__485 cc Fluid Composition:__simple FINDINGS: No marking was performed because there is no clear window CONCLUSION: 1. Pleural effusion, without clear window. Thoracentesis under ultrasound or CT guidance could be pe rformed Electronically signed by: Torres Viera MD Board Certified Radiologist 05/13/2018 12:29 PM EST
--- NOTE | 2018-05-13 13:07 | US ---
EXAM DATE: 05/13/2018 12:09 PM EST AGE/SEX: 77 years / Male INDICATIONS: Pleural effusion with shortness of breath. CLINICAL DATA: This is the patient's initial encounter. Patient reports that signs and symptoms have been present for 2 days and indicates a pain score of 0/10. MEDICAL/SURGICAL HISTORY: Carcinoma, bladder. Chronic obstructive pulmonary disease. Congesti ve heart failure. Renal disease. Parkinson's disease. Prostate cancer. Myocardial infarction. Co ronary artery stent. COMPARISON: [facility], US CHEST RIGHT, 05/13/2018. . MEASUREMENTS: Skin To Parietal Pleura:__3.2 cm Skin To Max Safe Depth:__N/A cm Estimated Fluid Volume:__401 cc Fluid Composition:__simple FINDINGS: Pleural fusion as above without clear window. CONCLUSION: 1. Pleural effusion as above without clear window. No marking Electronically signed by: Torres Viera MD Board Certified Radiologist 05/13/2018 1:06 PM EST
--- NOTE | 2018-05-13 13:41 | ECHRPT ---
Indication: Heart Failure CONCLUSIONS Normal left ventricular size. Wall thickness is measured at the upper limits of normal. The left ventricular systolic function is normal with an estimated ejection fraction in the range of 55-60%. The left atrial size is mildly dilated. Calcification of the posterior mitral valve leaflet. Trace mitral valve regurgitation. There is trace tricuspid valve regurgitation. The estimated pulmonary arterial pressure is 49 mmHg. BP: 155 / 51 HR: 79 Rhythm: MEASUREMENTS (Male / Female) Normal Values Technical Quality:Fair 2D ECHO LV Diastolic Diameter PLAX 5.3 cm 4.2 - 5.9 / 3.9 - 5.3 cm LV Systolic Diameter PLAX 3.5 cm IVS Diastolic Thickness 1.0 cm 0.6 - 1.0 / 0.6 - 0.9 cm LVPW Diastolic Thickness 0.9 cm 0.6 - 1.0 / 0.6 - 0.9 cm LV Relative Wall Thickness 0.4 RV Internal Dim ED PLAX 3.5 cm LVOT Diameter 2.0 cm Aortic Root Diameter 2.6 cm LA Systolic Diameter LX 4.5 cm 3.0 - 4.0 / 2.7 - 3.8 cm M-MODE AV Cusp Separation MM 1.8 cm DOPPLER AV Peak Velocity 207.0 cm/s AV Peak Gradient 17.1 mmHg AV Mean Gradient 8.0 mmHg AV Velocity Time Integral 44.6 cm LVOT Peak Velocity 136.0 cm/s LVOT Peak Gradient 7.4 mmHg LVOT Velocity Time Integral 33.0 cm LVOT Cardiac Index 3849.6 cm/minm AV Area Cont Eq vti 2.3 cm AV Area Cont Eq pk 2.1 cm Mitral E Point Velocity 133.0 cm/s Mitral A Point Velocity 132.0 cm/s Mitral E to A Ratio 1.0 LV E' Lateral Velocity 8.9 cm/s Mitral E to LV E' Lateral Ratio 15.0 LV E' Septal Velocity 6.6 cm/s Mitral E to LV E' Septal Ratio 20.1 TR Peak Velocity 312.0 cm/s TR Peak Gradient 38.9 mmHg Right Atrial Pressure 10.0 mmHg Pulmonary Artery Systolic Pressu 48.9 mmHg Right Ventricular Systolic Press 48.9 mmHg PV Peak Velocity 129.0 cm/s PV Peak Gradient 6.7 mmHg FINDINGS LEFT VENTRICLE Normal left ventricular size. Wall thickness is measured at the upper limits of normal. The left ventricular systolic function is normal with an estimated ejection fraction in the range of 55-60%. RIGHT VENTRICLE Normal right ventricular size and systolic function. LEFT ATRIUM The left atrial size is mildly dilated. RIGHT ATRIUM The right atrial size is normal. ATRIAL SEPTUM Normal atrial septal thickness without atrial level shunting by limited color doppler interrogation. AORTA The aortic root and proximal ascending aorta are normal in size on limited imaging. MITRAL VALVE Calcification of the posterior mitral valve leaflet. Trace mitral valve regurgitation. AORTIC VALVE Trileaflet aortic valve. Aortic valve sclerosis is present. TRICUSPID VALVE There is trace tricuspid valve regurgitation. The estimated pulmonary arterial pressure is 49 mmHg. PULMONARY VALVE No pulmonary valve regurgitation or stenosis. VESSELS The inferior vena cava is dilated. PERICARDIUM There is a small pericardial effusion present. Atif French MD, FACC (Electronically Signed) Final Date:13 May 2018 13:40
[2018-05-13 20:13] LABS: ABG Base Excess 4.9 mmol/L (-2-2); ABG PCO2 41 mmHg (38-42); ABG PO2 61 mmHg (61-120)
--- NOTE | 2018-05-13 20:13 | MB ---
cc: Viola Granger MD DATE: 05/13/2018 REASON FOR CONSULTATION: Respiratory failure, COPD, and congestive heart failure. HISTORY OF PRESENT ILLNESS: This is a 77-year-old white male with a history of COPD, history of atrial fibrillation, history of prostate and bladder cancer, and a history of diabetes, was admitted with complaints of progressive shortness of breath with activity. The patient was orthopneic, was wheezing, and had some cough as well, and thus was brought to the emergency room and subsequently admitted. He has not been on any specific anticoagulation except aspirin and also has been known to have chronic kidney disease. The patient had a chest x-ray which demonstrated evidence of pulmonary edema and pleural effusions, and the creatinine was 2.6. He was placed on O2 via nasal cannula and now in the intensive care unit and oxygen is weaned down to 2 liters. He has no chest pain, no hemoptysis and no leg swelling. PAST MEDICAL HISTORY: Includes; 1. History of COPD. 2. Chronic bronchitis. 3. History of bladder cancer. 4. Chronic atrial fibrillation. 5. He has had a previous [place]. 6. History of coronary angiography with coronary stent placement. HABITS: The patient smoked 1 pack per day for over 35 years. No significant alcohol use. FAMILY HISTORY: Noncontributory. ALLERGIES: NONE WERE LISTED. MEDICATIONS: 1. Bumex 1 mg daily. 2. Atorvastatin 20 mg a day. 3. Aspirin 1 daily. 4. Levothyroxine 50 mcg a day. 5. Lantus insulin 20 units subcutaneously daily. 6. Metolazone 10 mg a day. 7. Lorazepam 1 mg p.r.n. 8. Omeprazole 20 mg a day. 9. Sertraline 50 mg daily. 10. Potassium chloride 10 mEq daily. 11. Spiriva 2 sprays daily. 12. Terazosin 5 mg b.i.d. REVIEW OF SYSTEMS: The patient has lost weight. He has dizziness, postnasal drip, is wheezing and orthopneic. He has epigastric distress and cramping, and he has urinary frequency. Denies any joint pains or back pain and denied skin lesions. PHYSICAL EXAMINATION: GENERAL: This is an elderly, moderately overweight white male who is no acute distress. VITAL SIGNS: His blood pressure is 130/70 and pulse is 90, respirations 20, temperature 97.8. HEENT: Head is normocephalic. Pupils are reactive. Sclerae were injected. Throat is mildly injected. NECK: Supple, no bruits or thyroid enlargement. CHEST: Distant breath sounds with expiratory wheezes bilaterally with occasional basilar crackles. HEART: The heart sounds are irregular, S1 and S2 with no murmur. ABDOMEN: Soft, obese without masses. No organomegaly. The bowel sounds are active. EXTREMITIES: Mild peripheral edema with diminished peripheral pulses. NEUROLOGIC: Reflexes 1+ with no gross motor deficits. Cranial nerves grossly intact. SKIN: Dry and cool. IMPRESSION: 1. Pulmonary edema with pleural effusions. 2. Chronic obstructive pulmonary disease with emphysema. 3. Respiratory failure, resolving. 4. History of bladder and prostate cancer. 5. Diabetes mellitus type 2. 6. Atrial fibrillation. 7. Chronic kidney disease stage III. PLAN: The patient will be maintained on O2 at 2 liters. Nebulized DuoNeb solution added q.i.d. p.r.n. and continue with Solu-Medrol 40 mg b.i.d. Also, continue with the Lasix 40 mg a day IV and the patient will be sent for a followup chest x-ray in a.m. and a blood gas study to be done on 2 liters of oxygen. We will add Symbicort 160/4.5 mcg 2 puffs b.i.d. and, if he qualifies, we will arrange home oxygen at 2 liters after a 6-minute walk test. Thank you, Dr. Sanz, for this consultation. Viola Granger MD VJD/ll , 07:26 PM , 07:38 PM
[2018-05-13] MEDS: Budesonide-Formoterol 160/4.5 MCG 6 GM Inhaler INH SCH (22:03)
[2018-05-14] MEDS: MethylPREDNISolone Sod Succinate Inj 40 MG/ML Vial IV.PUSH SCH ×2 (03:59→15:57)
--- NOTE | 2018-05-14 05:50 | XR ---
EXAM DATE: 05/14/2018 5:47 AM EST AGE/SEX: 77 years / Male INDICATIONS: Shortness of breath. CLINICAL DATA: This is the patient's subsequent encounter. Patient reports that signs and symptoms h ave been present for 4 - 6 days and indicates a pain score of Nonresponsive. MEDICAL/SURGICAL HISTORY: . Chronic obstructive pulmonary disease. Congestive heart failure. . Cardiac stents COMPARISON: [facility], CHEST 1V SINGLE AP, 05/12/2018. . FINDINGS: Moderate severity cardiomegaly stable from prior. There is a triangular-shaped partially consolidativ e infiltrate in the left lower lung with loss of delineation of portions of the medial left hemidiaph ragm. The right lung is clear. The central bronchopulmonary markings are fairly well delineated. CONCLUSION: Left lower lobe infiltrate, more prominent than on prior. Electronically signed by: Maninder Cordero MD Board Certified Radiologist 05/14/2018 5:49 AM EST
[2018-05-14] MEDS: Isosorbide Mononitrate 60 MG ER 24HR Tablet (Imdur) PO SCH (06:05)
[2018-05-14] MEDS: Levothyroxine 50 MCG Tablet PO SCH (06:05)
[2018-05-14] MEDS: Insulin NovoLOG Aspart Correctional Sugar Inj SQ SCH ×4 (07:44→21:27)
[2018-05-14] MEDS: Budesonide-Formoterol 160/4.5 MCG 6 GM Inhaler INH SCH ×2 (08:11→21:28)
[2018-05-14] MEDS: Magnesium Oxide 400 MG Tablet PO SCH (08:14)
[2018-05-14] MEDS: Ferrous Sulfate 325 MG Tablet PO SCH (08:15)
[2018-05-14] MEDS: hydrALAZINE 50 MG Tablet PO SCH ×2 (08:15→21:30)
[2018-05-14] MEDS: Senna/Docusate Sodium 8.6/50 MG Tablet PO SCH ×2 (08:15→21:31)
[2018-05-14] MEDS: Sertraline 50 MG Tablet PO SCH (08:16)
[2018-05-14] MEDS: Insulin Detemir Inj 1,000 UNIT/10 ML Vial SQ SCH (08:16)
[2018-05-14] MEDS: Tiotropium Bromide 18 MCG/ACT Inhaler INH SCH (11:08)
--- NOTE | 2018-05-14 13:20 | XR ---
EXAM DATE: 05/14/2018 1:10 PM EST AGE/SEX: 77 years / Male INDICATIONS: Post right thoracentesis. CLINICAL DATA: This is the patient's subsequent encounter. Patient reports that signs and symptoms h ave been present for 1 day and indicates a pain score of 0/10. MEDICAL/SURGICAL HISTORY: Carcinoma, bladder. Chronic obstructive pulmonary disease. Congestiv e heart failure. Renal disease. Parkinson's disease. Prostate cancer. Myocardial infarction. Coronary artery stent. . COMPARISON: [facility], CHEST 1V SINGLE AP, 05/14/2018. . FINDINGS: There is no evidence of pneumothorax status post right thoracentesis. Mild diffuse increased intersti tial markings are noted consistent with mild pulmonary vascular congestion or viral pneumonitis. The heart is enlarged. CONCLUSION: 1. No pneumothorax status post right thoracentesis. 2. Mild diffuse increased interstitial markings consistent with mild pulmonary vascular congestion o r viral pneumonitis. 3. Cardiomegaly. Electronically signed by: Nelson Britton MD Board Certified Radiologist 05/14/2018 1:19 PM EST
--- NOTE | 2018-05-14 14:10 | P.DCO ---
- Diagnosis (1) Acute hypoxemic respiratory failure Status: Acute (2) Pulmonary edema Status: Acute - Home Health Nursing Order: Medical education, Signs/symptoms of disease process, CHF education, Nursing assessment with vital signs - Case Management Consult Case Management Consult-Home Health: Yes - Certification I have seen patient Gray Vazquez on 05/14/18. My clinical findings support the need for the requested home health care services because: Patient has SOB I certify that my clinical findings support that this patient is homebound because: Hx COPD - exertion dyspnea/weakness, Unsafe to leave home unassisted (2) Pulmonary edema Qualifiers: Chronicity: acute Qualified Code(s): J81.0 - Acute pulmonary edema
--- NOTE | 2018-05-14 15:07 | US ---
EXAM DATE: 05/14/2018 1:52 PM EST AGE/SEX: 77 years / Male INDICATIONS: Right pleural effusion. CLINICAL DATA: This is the patient's initial encounter. Patient reports that signs and symptoms have been present for 2 days and indicates a pain score of 0/10. MEDICAL/SURGICAL HISTORY: Carcinoma, bladder. Parkinson's disease. Carcinoma, prostatic. CHF . COPD. [place]. Renal disease. Afib. Coronary artery stent. COMPARISON: No prior exams available for comparison. FLUID: Total volume of 600 cc of clear, yellow fluid was removed. Fluid was sent to lab for ordered studies. . . TECHNIQUE: Ultrasound guidance for thoracentesis. Thoracentesis. The risks, benefits, and alternatives to ultrasound guided thoracentesis were explained to the patien t in lay simple terms, including the risk of bleeding and infection. Written and verbal informed con sent was obtained. Appropriate area for right thoracentesis was marked under ultrasound guidance with the patient in the upright position. Overlying skin was prepped and draped in the usual sterile fashion and with local anesthetic, a dermatotomy was made with an 11 blade scalpel. A 6 Pashto thoracentesis catheter was placed in the pleural space and fluid was removed. Catheter was then removed and a sterile dressing applied. There were no immediate complications. The patient tolerated the procedure well and the lef t the ultrasound suite in stable condition. Chest radiograph is to be obtained. FINDINGS: Adequate fluid for thoracentesis. CONCLUSION: 1. Uncomplicated thoracentesis. Electronically signed by: Chris Villegas MD Board Certified Radiologist 05/14/2018 3:05 PM AUSTYN Sosa
[2018-05-14 16:22] LABS: Lymphocytes,Pleural Fluid 20 %; Neutrophils,Pleural Fluid 80 %; RBC,Pleural Fluid 83 /mm3 (0-0)
--- NOTE | 2018-05-14 17:17 | P.PNIM ---
Subjective Interval history: 77-year-old male who is seen examined today for follow-up on congestive heart failure, chronic objective pulmonary disease, acute hypoxic restaurant failure. Patient is doing much better. He was on room air this morning. Walk test was performed which does indicate that the patient requires home O2. Vital signs are stable. Patient remains afebrile. Physical Exam Vital signs: Vital Signs 05/13/18 18:00 05/13/18 19:00 05/13/18 19:30 Temperature Pulse Rate 72 68 Respiratory Rate 29 H 16 Blood Pressure 165/53 H 177/66 H Pulse Oximetry 85 L 96 95 Pulse Oximetry [Exertion on Room Air] Pulse Oximetry [Exertion with Oxygen] Pulse Oximetry [Resting on Room Air] 05/13/18 19:37 05/13/18 20:00 05/14/18 00:00 Temperature 97.6 F 99.8 F H Pulse Rate 69 75 70 Respiratory Rate 20 12 16 Blood Pressure 171/73 H 129/77 Pulse Oximetry 93 L 97 Pulse Oximetry [Exertion on Room Air] Pulse Oximetry [Exertion with Oxygen] Pulse Oximetry [Resting on Room Air] 05/14/18 04:00 05/14/18 07:32 05/14/18 08:00 Temperature 98.7 F 97.6 F Pulse Rate 68 103 H 72 Respiratory Rate 16 19 21 Blood Pressure 170/59 H 117/58 L Pulse Oximetry 94 L 96 Pulse Oximetry [Exertion on Room Air] Pulse Oximetry [Exertion with Oxygen] Pulse Oximetry [Resting on Room Air] 05/14/18 09:41 05/14/18 12:00 05/14/18 16:00 Temperature 97.5 F L Pulse Rate 78 80 Respiratory Rate 20 Blood Pressure 151/67 H Pulse Oximetry 97 Pulse Oximetry [Exertion on Room Air] 84 L Pulse Oximetry [Exertion with Oxygen] 92 L Pulse Oximetry [Resting on Room Air] 92 L Intake & Output 05/13/18 05/14/18 05/14/18 18:59 06:59 18:59 Intake Total 240 / 240 480 / 480 Output Total 250 / 250 740 / 740 Balance 240 / 240 -250 / -250 -260 / -260 Intake: Oral 240 / 240 480 / 480 Output: Urine 250 / 250 740 / 740 Other: # Urine Diapers 1 Narrative: GENERAL: Well-developed, well-nourished, in no acute distress. alert and orientated HEENT: Head is normocephalic without any lesions or masses noted. Facial features are symmetric. Eyes: Extraocular muscles are intact. Conjunctivae were clear. NECK: Supple without any masses. Trachea midline no deviation. No JVD, CARDIAC: Regular rhythm, regular rate. S1/S2 are heard. No murmurs gallops or rubs. LUNGS: Diminished breath sounds noted bilaterally. No wheeze, rhonchi or rales. No use of accessory muscles on inspiration or expiration. ABDOMEN: Soft, nontender. Nondistended. Bowel sounds heard in all 4 quadrants. No organomegaly or masses. Negative rebound, negative guarding EXTREMITIES: No edema, pulses are equal bilaterally. No cyanosis or clubbing. Patient skin has obvious dark coloration likely secondary to amiodarone NEUROLOGY: Mood and affect appear appropriate. Cranial nerves II through XII grossly intact. Moving all extremities, speech is clear Results - Labs CBC & Chem 7: 05/13/18 03:57 05/13/18 03:57 Laboratory Results - last 24 hr 05/13/18 05/13/18 05/13/18 17:10 20:03 20:51 Puncture Site Right brachial Patient Temperature 98.6 O2 Saturation 90 ABG pH 7.46 H ABG pCO2 41 ABG pO2 61 ABG HCO3 29 H ABG O2 Content 10.6 L ABG Base Excess 4.9 H ABG Methemoglobin 0.6 Hemoglobin 8.3 L Carboxyhemoglobin 1.8 O2 Delivery Device Room air Inspired O2 21 Critical Value No POC Glucose 364 H 314 H Pleural RBC Pleural Nuc Cells Pleural Neutrophils Pleural Lymphocytes 05/14/18 05/14/18 05/14/18 07:29 11:07 13:00 Puncture Site Patient Temperature O2 Saturation ABG pH ABG pCO2 ABG pO2 ABG HCO3 ABG O2 Content ABG Base Excess ABG Methemoglobin Hemoglobin Carboxyhemoglobin O2 Delivery Device Inspired O2 Critical Value POC Glucose 232 H 233 H Pleural RBC 83 H Pleural Nuc Cells 9 Pleural Neutrophils 80 Pleural Lymphocytes 20 05/14/18 16:22 Puncture Site Patient Temperature O2 Saturation ABG pH ABG pCO2 ABG pO2 ABG HCO3 ABG O2 Content ABG Base Excess ABG Methemoglobin Hemoglobin Carboxyhemoglobin O2 Delivery Device Inspired O2 Critical Value POC Glucose 277 H Pleural RBC Pleural Nuc Cells Pleural Neutrophils Pleural Lymphocytes - Imaging Impressions Chest X-Ray 05/14/18 00:00 CONCLUSION: Left lower lobe infiltrate, more prominent than on prior. Chest X-Ray 05/14/18 00:00 CONCLUSION: 1. No pneumothorax status post right thoracentesis. 2. Mild diffuse increased interstitial markings consistent with mild pulmonary vascular congestion or viral pneumonitis. 3. Cardiomegaly. Thoracentesis Ultrasound 05/14/18 00:00 CONCLUSION: 1. Uncomplicated thoracentesis. - Procedures ECHOCARDIOGRAM Normal left ventricular size. Wall thickness is measured at the upper limits of normal. The left ventricular systolic function is normal with an estimated ejection fraction in the range of 55-60%. The left atrial size is mildly dilated. Calcification of the posterior mitral valve leaflet. Trace mitral valve regurgitation. There is trace tricuspid valve regurgitation. The estimated pulmonary arterial pressure is 49 mmHg. Assessment and Plan - Assessment (1) Acute hypoxemic respiratory failure Code(s): J96.01 - Acute respiratory failure with hypoxia Status: Acute (2) Pulmonary edema Code(s): J81.1 - Chronic pulmonary edema Status: Acute - Plan Acute diastolic congestive heart failure Acute respiratory failure suspect secondary to above -Chest x-ray showing possible pulmonary edema with pleural effusions. -Chest CT showing bilateral pleural effusions and pulm edema and overload. Also prominent lymph nodes presents. -Pulmonary has been consulted, who recommended thoracentesis, continuation of diuresis, addition of Symbicort, Home oxygen walk study -Continue Lasix 40 mg IV daily. -Monitor intake and output closely. -Echocardiogram, results above -Patient ruled out for acute coronary event with serial cardiac enzymes which were negative, serial EKGs without any changes COPD with possible exacerbation -Chest x-ray and chest CT findings as above. -Continue methylprednisone IV 40 mg IV every 12 -Continue Levaquin -Supplemental O2 as needed to keep oxygen saturations greater than 92%. -DuoNeb scheduled and available as needed for shortness of breath/wheezing. -Continue Symbicort History of atrial fibrillation -Patient follows with Dr. Ibarra, cardiology. Not on anticoagulation at home. On aspirin at home. -Continue on cardiac telemetry, monitor for any arrhythmias. -EKG reviewed, sinus rhythm with controlled heart rate, no ST changes to indicate any ischemia. Anemia of chronic disease History of iron deficiency anemia. Normocytic normochromic anemia -Continue monitor hemoglobin transfuse if hemoglobin below 8.0 -Will continue to monitor CBC. -No signs of active bleeding. -Continue supplemental iron Chronic kidney disease stage IV -Continue monitor renal function -Continue to follow. -Avoid nephrotoxins. -Follow BMP in a.m. Type 2 diabetes mellitus, chronic -Accu-Chek before meals at bedtime, sliding scale, cover as needed. -Continue Levemir at night. Adjust as needed. History of prostate and bladder cancer -Patient sees Dr. Velez. DVT prophylaxis: -Sequential compression devices -Subcutaneous heparin Discharge Planning: Case management consulted for home oxygen, home health care (2) Pulmonary edema Qualifiers: Chronicity: acute Qualified Code(s): J81.0 - Acute pulmonary edema
[2018-05-14 17:50] LABS: Total Protein,Pleural Fluid 1.5 gm/dL
--- NOTE | 2018-05-14 18:57 | P.PN ---
Subjective Interval history: He is better. On O2 2 L. and needs home O2 . Able to walk in halls. Output was OK. Physical Exam Vital signs: Vital Signs 05/13/18 19:00 05/13/18 19:30 05/13/18 19:37 Temperature Pulse Rate 68 69 Respiratory Rate 16 20 Blood Pressure 177/66 H Pulse Oximetry 96 95 Pulse Oximetry [Exertion on Room Air] Pulse Oximetry [Exertion with Oxygen] Pulse Oximetry [Resting on Room Air] 05/13/18 20:00 05/14/18 00:00 05/14/18 04:00 Temperature 97.6 F 99.8 F H 98.7 F Pulse Rate 75 70 68 Respiratory Rate 12 16 16 Blood Pressure 171/73 H 129/77 170/59 H Pulse Oximetry 93 L 97 Pulse Oximetry [Exertion on Room Air] Pulse Oximetry [Exertion with Oxygen] Pulse Oximetry [Resting on Room Air] 05/14/18 07:32 05/14/18 08:00 05/14/18 09:41 Temperature 97.6 F Pulse Rate 103 H 72 Respiratory Rate 19 21 Blood Pressure 117/58 L Pulse Oximetry 94 L 96 Pulse Oximetry [Exertion on Room Air] 84 L Pulse Oximetry [Exertion with Oxygen] 92 L Pulse Oximetry [Resting on Room Air] 92 L 05/14/18 12:00 05/14/18 16:00 Temperature 97.5 F L Pulse Rate 78 76 Respiratory Rate 20 Blood Pressure 151/67 H Pulse Oximetry 97 Pulse Oximetry [Exertion on Room Air] Pulse Oximetry [Exertion with Oxygen] Pulse Oximetry [Resting on Room Air] Intake & Output 05/13/18 05/14/18 05/14/18 18:59 06:59 18:59 Intake Total 240 / 240 480 / 480 Output Total 250 / 250 740 / 740 Balance 240 / 240 -250 / -250 -260 / -260 Intake: Oral 240 / 240 480 / 480 Output: Urine 250 / 250 740 / 740 Other: # Urine Diapers 1 Narrative: GENERAL: Well-developed, well-nourished, in no acute distress. HEENT: Head is normocephalic without any lesions or masses noted. Facial features are symmetric. Eyes: Extraocular muscles are intact. Conjunctivae were clear. NECK: Supple without any masses. Trachea midline no deviation. No JVD, CARDIAC: Regular rhythm, regular rate. S1/S2 are heard. No murmurs gallops or rubs. LUNGS: Diminished breath sounds noted bilaterally.Occ Basal crackles +. No use of accessory muscles. ABDOMEN: Soft, nontender. Nondistended. Bowel sounds heard in all 4 quadrants. No organomegaly or masses. Negative rebound, negative guarding EXTREMITIES: No edema, pulses are decreased bilaterally. No cyanosis or clubbing. NEUROLOGY: Mood and affect appear appropriate. Cranial nerves II through XII grossly intact. Moving all extremities, speech is clear Results - Labs CBC & Chem 7: 05/13/18 03:57 05/13/18 03:57 Laboratory Results - last 24 hr 05/13/18 05/13/18 05/14/18 20:03 20:51 07:29 Puncture Site Right brachial Patient Temperature 98.6 O2 Saturation 90 ABG pH 7.46 H ABG pCO2 41 ABG pO2 61 ABG HCO3 29 H ABG O2 Content 10.6 L ABG Base Excess 4.9 H ABG Methemoglobin 0.6 Hemoglobin 8.3 L Carboxyhemoglobin 1.8 O2 Delivery Device Room air Inspired O2 21 Critical Value No POC Glucose 314 H 232 H Pleural pH Pleural RBC Pleural Nuc Cells Pleural Neutrophils Pleural Lymphocytes Pleural Total Protein Pleural LDH Pleural Glucose Pleural Amylase 05/14/18 05/14/18 05/14/18 11:07 13:00 13:00 Puncture Site Patient Temperature O2 Saturation ABG pH ABG pCO2 ABG pO2 ABG HCO3 ABG O2 Content ABG Base Excess ABG Methemoglobin Hemoglobin Carboxyhemoglobin O2 Delivery Device Inspired O2 Critical Value POC Glucose 233 H Pleural pH 8.0 Pleural RBC 83 H Pleural Nuc Cells 9 Pleural Neutrophils 80 Pleural Lymphocytes 20 Pleural Total Protein 1.5 Pleural LDH 62 Pleural Glucose 235 Pleural Amylase 12 05/14/18 16:22 Puncture Site Patient Temperature O2 Saturation ABG pH ABG pCO2 ABG pO2 ABG HCO3 ABG O2 Content ABG Base Excess ABG Methemoglobin Hemoglobin Carboxyhemoglobin O2 Delivery Device Inspired O2 Critical Value POC Glucose 277 H Pleural pH Pleural RBC Pleural Nuc Cells Pleural Neutrophils Pleural Lymphocytes Pleural Total Protein Pleural LDH Pleural Glucose Pleural Amylase - Imaging Impressions Chest X-Ray 05/14/18 00:00 CONCLUSION: Left lower lobe infiltrate, more prominent than on prior. Chest X-Ray 05/14/18 00:00 CONCLUSION: 1. No pneumothorax status post right thoracentesis. 2. Mild diffuse increased interstitial markings consistent with mild pulmonary vascular congestion or viral pneumonitis. 3. Cardiomegaly. Thoracentesis Ultrasound 05/14/18 00:00 CONCLUSION: 1. Uncomplicated thoracentesis. - Procedures ECHOCARDIOGRAM Normal left ventricular size. Wall thickness is measured at the upper limits of normal. The left ventricular systolic function is normal with an estimated ejection fraction in the range of 55-60%. The left atrial size is mildly dilated. Calcification of the posterior mitral valve leaflet. Trace mitral valve regurgitation. There is trace tricuspid valve regurgitation. The estimated pulmonary arterial pressure is 49 mmHg. Assessment and Plan - Assessment (1) Pleural effusion Code(s): J90 - Pleural effusion, not elsewhere classified Status: Acute (2) Pulmonary fibrosis Code(s): J84.10 - Pulmonary fibrosis, unspecified Status: Acute (3) Pneumonia Code(s): J18.9 - Pneumonia, unspecified organism Status: Acute - Plan 1. O2 2 L and arrange home O2. 2. Nebs qid , duoneb. 3. Solumedrol 40 mg BID and D/C in am 4. Continue lasix 40 mg daily 5. CBC,BMP ,CXR in am 6. Continue Levaquin and switch to PO
[2018-05-15] MEDS: MethylPREDNISolone Sod Succinate Inj 40 MG/ML Vial IV.PUSH SCH (03:42)
--- NOTE | 2018-05-15 06:16 | XR ---
EXAM DATE: 05/15/2018 6:10 AM EST AGE/SEX: 77 years / Male INDICATIONS: Short of breath. CLINICAL DATA: This is the patient's subsequent encounter. Patient reports that signs and symptoms h ave been present for 2 days and indicates a pain score of 0/10. MEDICAL/SURGICAL HISTORY: . Carcinoma, bladder. Chronic obstructive pulmonary disease. Congesti ve heart failure. Renal disease. Parkinson's disease. Prostate cancer. Myocardial infarction. Coron ethel artery stent. COMPARISON: [facility], CHEST EXPIRATION ONLY, 05/14/2018. . FINDINGS: A single AP view of the chest demonstrates slight interstitial prominence without evidence of mass, i nfiltrate or effusion. Heart mildly enlarged. The cardiomediastinal contours are unremarkable. Osse ous structures are intact. CONCLUSION: Interstitial prominence, unchanged. Electronically signed by: Lukasz Elmore MD Board Certified Radiologist 05/15/2018 6:14 AM EST
[2018-05-15] MEDS: Isosorbide Mononitrate 60 MG ER 24HR Tablet (Imdur) PO SCH (06:29)
[2018-05-15] MEDS: Levothyroxine 50 MCG Tablet PO SCH (06:29)
[2018-05-15 07:01] LABS: Baso % (Auto) 0.1 % (0.0-2.0); Hematocrit 27.5 % (39.0-51.0); Lymph # (Auto) 0.3 th/mm3 (1.0-4.8); Lymph % (Auto) 1.7 % (9.0-44.0); Mean Corpuscular HGB Conc 32.8 % (32.0-36.0); Mean Corpuscular Hemoglobin 32.6 pg (27.0-34.0); Mean Corpuscular Volume 99.4 fL (80.0-100.0); Mean Platelet Volume 10.4 fL (7.0-11.0); Mono # (Auto) 0.4 th/mm3 (0.0-0.9); Mono % (Auto) 2.8 % (0.0-8.0); Neut # (Auto) 15.2 th/mm3 (1.8-7.7); Neut % (Auto) 95.4 % (16.0-70.0); Platelet Count 202 th/mm3 (150-450); Red Blood Count 2.77 mil/mm3 (4.50-5.90); Red Cell Distribution Width 15.2 % (11.6-17.2); White Blood Count 15.9 th/mm3 (4.0-11.0)
[2018-05-15 07:06] LABS: Potassium 3.9 meq/L (3.5-5.1)
[2018-05-15 07:09] LABS: Calcium 8.3 mg/dL (8.5-10.1); Carbon Dioxide 30.8 meq/L (21.0-32.0)
[2018-05-15] MEDS: Insulin NovoLOG Aspart Correctional Sugar Inj SQ SCH (07:37)
[2018-05-15 07:49] VITALS: O2SAT 97
[2018-05-15] MEDS: Sertraline 50 MG Tablet PO SCH (08:19)
[2018-05-15] MEDS: Ferrous Sulfate 325 MG Tablet PO SCH (08:20)
[2018-05-15] MEDS: Senna/Docusate Sodium 8.6/50 MG Tablet PO SCH (08:20)
[2018-05-15] MEDS: Magnesium Oxide 400 MG Tablet PO SCH (08:20)
[2018-05-15] MEDS: hydrALAZINE 50 MG Tablet PO SCH (08:20)
[2018-05-15] MEDS: Budesonide-Formoterol 160/4.5 MCG 6 GM Inhaler INH SCH (08:22)
[2018-05-15] MEDS: Tiotropium Bromide 18 MCG/ACT Inhaler INH SCH (08:23)
[2018-05-15] MEDS: Insulin Detemir Inj 1,000 UNIT/10 ML Vial SQ SCH (08:26)
[2018-05-15 09:50] VITALS: BP 138/61; RESP 20; TEMP 97
[2018-05-15 10:46] VITALS: PULSE 72
--- NOTE | 2018-05-15 11:24 | P.DS ---
Date of admission: 05/12/18 12:51 Primary care physician: Mira Rizo MD Attending physician on discharge: Ana Cristina Groves Anticipated date of discharge: 05/15/18 Brief History from admission: This is a 77-year-old male patient with a known medical history of COPD, atrial fibrillation, prostate and bladder cancer who presented to the ED with worsening shortness of breath x 1 day. Patient states that yesterday morning he noticed worsening shortness of breath especially with activity. He denies any recent coughing. Shortness of breath was partially relieved with his nebulizers although it does seem to worsen over the course of the day. Patient states that his daily weights were also creeping up as well. He states that last week he saw his cnc router operator, Dr. Ibarra, who at that time discontinued his amiodarone secondary to some reports of scarring on his x-ray seen by his right of way man. He does have a history of atrial fibrillation, on a baby aspirin. His anticoagulation was stopped in 2015 secondary to a bleeding polyp. Patient also sees a social media community manager for chronic kidney disease, Dr. Haynes, last seen a few months ago and has documented kidney disease Patient does state that he had an upper respiratory infection roughly 2 months ago was placed on antibiotics and steroids, denies any recent antibiotics or steroids. Patient has a history of COPD, sees Dr. Hernandez, pulmonary. Denies any recent fevers, chills, headache, abdominal pain, nausea, vomiting, diarrhea or dysuria. Denies recent echocardiogram. Patient is found to be in CHF exacerbation unknown type. BNP elevated. Chest x-ray significant for pulmonary edema as well as bilateral pleural effusions. DS: Diagnosis - Discharge Diagnosis (1) Acute hypoxemic respiratory failure Status: Acute (2) Pulmonary edema Status: Acute DS: Medications - Discharge Medications Prescriptions: budesonide-formoterol [Symbicort] 2 puff INH BID #1 g bumetanide 2 mg PO DAILY #30 tab levofloxacin 750 mg PO Q48H #4 tab prednisone 1 pack PO PER PKG DIR #1 each DS: Summary Hospital Course: 77-year-old male with known history of atrial fibrillation, chronic obstructive pulmonary disease, prostate and bladder cancer who presented to the hospital for 1 day history of shortness of breath. Patient had workup done and found to have bilateral pleural effusions, elevated BNP, chest x-ray with pulmonary edema. Patient was admitted the hospital with combination of acute congestive heart failure, acute exacerbation of COPD resulting in acute hypoxic respiratory failure. Patient was started on oxygen supplementation to maintain O2 sat greater than 92%. Patient was started on diuresis 40 mg IV daily, continued on antibiotics include Levaquin, Solu-Medrol, nebulizer treatments. Monitor strict input and output. Patient diuresed well with improvement of his respiratory status. Translator Deaf was consulted for further recommendations and management. Translator Deaf evaluated the patient and recommended the addition inhaler and thoracentesis. Patient did undergo thoracentesis with 600 cc of fluid removed from the right side which was transudate of material. Patient is followed by Dr. Ibarra for atrial fibrillation and need off his amiodarone due to possible lung injury. Patient is on baby aspirin for anticoagulation. He was on full anticoagulation up until 2016 when he had a GI bleed. During the patient's stay patient's heart rate remained stable. Did not require any additional medications for rate control. Patient was found to have chronic kidney disease with creatinine 2.4. Patient is followed by social media community manager in outpatient setting. Renal functions were followed during his stay in the hospital without any significant worsening. Patient did undergo echocardiogram during his stay in the hospital which did not indicate any ventricular dysfunction. Patient with diastolic congestive heart failure. Patient did have PA peak pressure 49 with moderate pulmonary hypertension likely secondary to his chronic lung disease. Ejection fraction was 55-60%. Patient tolerated treatment quite well. He was weaned down to 2 L nasal cannula oxygen. Patient did undergo home oxygen walk study in which indicated patient will require home oxygen. recruiter manager was consulted and did arrange home oxygen as well as home health care. Patient clinically stable at this time. We will plan discharge home with home health care. - Time Spent with Patient Total time spent providing and/or coordinating discharge services: Greater than 30 minutes - Quality: VTE Deep Vein Thrombosis/Pulmonary Embolism Present on Admission: No Exam Vital signs: Vital Signs 05/14/18 12:00 05/14/18 16:00 05/14/18 19:54 Temperature 97.5 F L Pulse Rate 78 76 62 Respiratory Rate 20 18 Blood Pressure 151/67 H Pulse Oximetry 97 98 05/14/18 20:00 05/15/18 00:00 05/15/18 04:00 Temperature 96.5 F L 96.6 F L 98.7 F Pulse Rate 65 67 69 Respiratory Rate 18 18 18 Blood Pressure 140/65 135/86 142/63 H Pulse Oximetry 99 97 95 05/15/18 07:48 05/15/18 08:00 Temperature 97 F L Pulse Rate 79 72 Respiratory Rate 18 20 Blood Pressure 138/61 Pulse Oximetry 97 97 Intake & Output 05/14/18 05/15/18 05/15/18 18:59 06:59 18:59 Intake Total 480 / 480 200 / 200 Output Total 740 / 740 750 / 750 Balance -260 / -260 -550 / -550 Weight 93.9 kg Intake: Oral 480 / 480 200 / 200 Output: Urine 740 / 740 750 / 750 Narrative: GENERAL: Well-developed, well-nourished, in no acute distress. alert and orientated HEENT: Head is normocephalic without any lesions or masses noted. Facial features are symmetric. Eyes: Extraocular muscles are intact. Conjunctivae were clear. NECK: Supple without any masses. Trachea midline no deviation. No JVD, CARDIAC: Regular rhythm, regular rate. S1/S2 are heard. No murmurs gallops or rubs. LUNGS: Diminished breath sounds noted bilaterally. No wheeze, rhonchi or rales. No use of accessory muscles on inspiration or expiration. ABDOMEN: Soft, nontender. Nondistended. Bowel sounds heard in all 4 quadrants. No organomegaly or masses. Negative rebound, negative guarding EXTREMITIES: No edema, pulses are equal bilaterally. No cyanosis or clubbing. Patient skin has obvious dark coloration likely secondary to amiodarone NEUROLOGY: Mood and affect appear appropriate. Cranial nerves II through XII grossly intact. Moving all extremities, speech is clear Results Procedures completed during hospitalization: ECHOCARDIOGRAM Normal left ventricular size. Wall thickness is measured at the upper limits of normal. The left ventricular systolic function is normal with an estimated ejection fraction in the range of 55-60%. The left atrial size is mildly dilated. Calcification of the posterior mitral valve leaflet. Trace mitral valve regurgitation. There is trace tricuspid valve regurgitation. The estimated pulmonary arterial pressure is 49 mmHg. 05/14/18 THORACENTESIS Labs on day of discharge: Labs from last 24 hours 05/15/18 05/15/18 05/15/18 07:30 05:50 05:50 CBC w Diff Auto diff final WBC 15.9 H RBC 2.77 L Hgb 9.0 L Hct 27.5 L MCV 99.4 MCH 32.6 MCHC 32.8 RDW 15.2 Plt Count 202 MPV 10.4 Neut % (Auto) 95.4 H Lymph % (Auto) 1.7 L [place] % (Auto) 2.8 Eos % (Auto) 0.0 Baso % (Auto) 0.1 Neut # (Auto) 15.2 H Lymph # (Auto) 0.3 L [place] # (Auto) 0.4 Eos # (Auto) 0.0 Baso # (Auto) 0.0 WBC Differential . Differential Comment . Sodium 138 Potassium 3.9 Chloride 98 Carbon Dioxide 30.8 Anion Gap 9 BUN 71 H Creatinine 2.70 H Estimated GFR 23 L POC Glucose 374 H Random Glucose 298 H Calcium 8.3 L Pleural pH Pleural RBC Pleural Nuc Cells Pleural Neutrophils Pleural Lymphocytes Pleural Total Protein Pleural LDH Pleural Glucose Pleural Amylase 05/14/18 05/14/18 05/14/18 20:27 16:22 13:00 CBC w Diff WBC RBC Hgb Hct MCV MCH MCHC RDW Plt Count MPV Neut % (Auto) Lymph % (Auto) [place] % (Auto) Eos % (Auto) Baso % (Auto) Neut # (Auto) Lymph # (Auto) [place] # (Auto) Eos # (Auto) Baso # (Auto) WBC Differential Differential Comment Sodium Potassium Chloride Carbon Dioxide Anion Gap BUN Creatinine Estimated GFR POC Glucose 165 H 277 H Random Glucose Calcium Pleural pH Pleural RBC 83 H Pleural Nuc Cells 9 Pleural Neutrophils 80 Pleural Lymphocytes 20 Pleural Total Protein Pleural LDH Pleural Glucose Pleural Amylase 05/14/18 13:00 CBC w Diff WBC RBC Hgb Hct MCV MCH MCHC RDW Plt Count MPV Neut % (Auto) Lymph % (Auto) [place] % (Auto) Eos % (Auto) Baso % (Auto) Neut # (Auto) Lymph # (Auto) [place] # (Auto) Eos # (Auto) Baso # (Auto) WBC Differential Differential Comment Sodium Potassium Chloride Carbon Dioxide Anion Gap BUN Creatinine Estimated GFR POC Glucose Random Glucose Calcium Pleural pH 8.0 Pleural RBC Pleural Nuc Cells Pleural Neutrophils Pleural Lymphocytes Pleural Total Protein 1.5 Pleural LDH 62 Pleural Glucose 235 Pleural Amylase 12 - Impressions ITS Impressions Chest CT 05/12/18 00:00 CONCLUSION: 1. Volume overload and pulmonary edema. 2. Bilateral pleural effusions. Bibasilar consolidation and/or compressive collapse. 3. Prominent lymph nodes not present on the prior study from 2014 nonspecific in regards to malignancy could be reactive, however neoplastic etiologies should also be entertained and clinical correlation is recommended. Chest Ultrasound 05/13/18 00:00 CONCLUSION: 1. Pleural effusion as above without clear window. No marking Thoracentesis Ultrasound 05/14/18 00:00 CONCLUSION: 1. Uncomplicated thoracentesis. Chest X-Ray 05/15/18 00:00 CONCLUSION: Interstitial prominence, unchanged. Discharge Plan - Discharge Disposition Patient Disposition: /[facility] Service - Discharge Condition Condition: Stable - Discharge Order Discharge Orders: Discharge Order (Routine); Ordered 05/15/18 Ordered By: Lebron Vaughan ED Use Only Admit Order (Routine); Ordered 05/12/18 Ordered By: Jerel Casanova - Discharge Details Anticipated Discharge Date: 05/14/18 - Physicians Team Primary Care Provider: Mira Rizo Attending Provider: Ana Cristina Groves Other Providers: Avery Varela ; Servando Rodriguez MD
== END 2018-05-15 11:39 | disposition home health service (06) ==
LOC: PHED 11:09 → PHEDA 12:51 → PHICU 16:37 → PH3 05-14 05:48
PROVIDERS: ADMIT Hospitalist; ATTEND Hospitalist